=== PATIENT | female | born 1960 | race Caucasian/White ===

== ENCOUNTER 2022-05-23 06:50 | Emergency (ER) | payer MEDICAID, OTHER ==
[~2022-05-23] VITALS: Ht 165.1 cm; Wt 61.2 kg
[2022-05-23 08:36] LABS: Basophils # (auto) 0 10 ^3/uL (0-0.2); Basophils % (auto) 0.3 % (0.0-2.0); Eosinophils # (auto) 0 10 ^3/uL (0-0.8); Eosinophils % (auto) 0.6 % (0.0-7.0); Hematocrit 37.5 % (36.0-46.0); Hemoglobin 12.7 g/dL (12.2-16.2); Lymphocytes # (auto) 1.1 10 ^3/uL (0.4-5.4); Lymphocytes % (auto) 15.7 % (10.0-50.0); Mean Corpuscular Hemoglobin 34.4 pg (28.0-32.0); Mean Corpuscular Hgb Conc. 33.9 g/dL (32.0-36.0); Mean Corpuscular Volume 101.6 fL (80.0-100.0); Monocytes # (auto) 0.5 10 ^3/uL (0-1.3); Monocytes % (auto) 6.7 % (0.0-12.0); Neutrophils # (auto) 5.2 10 ^3/uL (1.6-8.6); Neutrophils % (auto) 76.7 % (37.0-80.0); Nucleated Red Blood Cells % 0.1 %; Red Cell Distribution Width 14.1 % (11.8-14.3); White Blood Cell 6.8 10^3/uL (4.4-10.8)
[2022-05-23 08:45] LABS: Albumin 3.8 g/dL (3.4-5.0); Calcium 8.6 mg/dL (8.5-10.1); Potassium 3.2 mmol/L (3.5-5.1)
[2022-05-23 08:50] LABS: BUN/Creatinine Ratio 17.2; Bilirubin, Total 2.2 mg/dL (0.2-1.0); Total Protein 8.4 g/dL (6.4-8.2)
[2022-05-23 09:10] LABS: INR 1.33 (0.9-1.15); Partial Thromboplastin Time 26.6 sec (23.6-33.0)
[2022-05-23 11:09] LABS: Urine Bacteria MANY /hpf (None Seen); Urine Blood Negative /uL (Negative); Urine Mucus MODERATE (None Seen); Urine Specific Gravity 1.027 (1.001-1.035); Urine WBC 18 /hpf (0 - 5)
[2022-05-23] MEDS ORDERED: NITR-87 PO (12:10)
[2022-05-23 13:46] VITALS: BP 141/85
== END 2022-05-23 13:23 | disposition home or self-care (01) ==
LOC: ER 06:50
DX: N39.0 Urinary tract infection, site not specified (principal); K76.9 Liver disease, unspecified
CPT/HCPCS: 36415; 70450; 74176; 80053; 81001; 84484; 85025; 85610; 85730

== ENCOUNTER 2023-09-21 04:13 | Inpatient (IN) | payer MEDICAID ==
[~2023-09-21] VITALS: Ht 165.1 cm; Wt 69.0 kg
[2023-09-21] VITALS (9 sets, daily range): BP systolic 118–159; BP diastolic 52–83; PULSE 78–126; RESP 14–20; TEMP 97.5–99.4; O2SAT 99–100
[~2023-09-21 04:13] MED LIST: NITR-87 PO
[2023-09-21] MEDS ORDERED: PROMETHAZINE HCL 25 MG/ML 1ML IV ONE (05:45)
[2023-09-21] MEDS ORDERED: PANTOPRAZOLE 40 MG/10 ML VIAL INJ IV ONE (05:45)
[2023-09-21] MEDS ORDERED: PANTOPRAZOLE 40mg/50ML NS AE 50 ML IV ONE (05:45)
[2023-09-21] MEDS ORDERED: HYDROmorphone HCL 2 MG/ML VL/or syr IV ONE (05:45)
[2023-09-21] MEDS ORDERED: LACTATED RINGER'S 1,000 ML IV ONE ×2 (05:45→07:15)
[2023-09-21 06:38] LABS: Basophils # (auto) 0 10 ^3/uL (0-0.2); Basophils % (auto) 0.3 % (0.0-2.0); Eosinophils # (auto) 0 10 ^3/uL (0-0.8); Hematocrit 17.7 % (36.0-46.0); Lymphocytes # (auto) 0.8 10 ^3/uL (0.4-5.4); Lymphocytes % (auto) 7.5 % (10.0-50.0); Mean Corpuscular Hemoglobin 25.1 pg (28.0-32.0); Mean Corpuscular Hgb Conc. 30.8 g/dL (32.0-36.0); Mean Corpuscular Volume 81.5 fL (80.0-100.0); Monocytes # (auto) 0.8 10 ^3/uL (0-1.3); Monocytes % (auto) 7.7 % (0.0-12.0); Neutrophils % (auto) 84.5 % (37.0-80.0); Nucleated Red Blood Cells % 0.4 %; Red Blood Cells 2.17 10^6/uL (4.0-5.20); White Blood Cell 10.7 10^3/uL (4.4-10.8)
[2023-09-21 06:41] LABS: Red Cell Distribution Width 20.3 % (11.8-14.3)
[2023-09-21 06:42] LABS: Hemoglobin 5.5 g/dL (12.2-16.2)
[2023-09-21 06:48] LABS: INR 1.55 (0.9-1.15); Partial Thromboplastin Time < 20.0 SEC (24.5-34.5); Prothrombin Time 15.8 sec (9.3-11.8)
[2023-09-21 06:50] LABS: Alanine Aminotransferase 59 U/L (7-40); Albumin 3.8 g/dL (3.2-4.8); Alkaline Phosphatase 66 U/L (46-116); Anion Gap 19 (5-15); Aspartate Aminotransferase 85 U/L (13-40); BUN/Creatinine Ratio 36.6 (10.0-20.0); Blood Urea Nitrogen 26 mg/dL (9-23); Carbon Dioxide 19 mmol/L (20-30); Chloride 99 mmol/L (98-107); Glucose 110 mg/dL (74-106); Magnesium 1.2 mg/dL (1.6-2.6); Potassium 4.1 mmol/L (3.5-5.1); Sodium 137 mmol/L (136-145)
[2023-09-21 06:51] LABS: Total Protein 6.5 g/dL (5.7-8.2)
[2023-09-21] MEDS: NICOTINE 14 MG/24HR TOPICAL PATCH TD SCH (10:00)
[2023-09-21] MEDS ORDERED: MORPHINE SULFATE INJ 2 MG/ml SYRG IV PRN (10:00)
[2023-09-21] MEDS ORDERED: DOCUSATE SOD 100 MG CAP PO PRN (10:00)
[2023-09-21] MEDS ORDERED: ONDANSETRON HCL 4 MG/2 ML VIAL IV PRN (10:00)
[2023-09-21] MEDS ORDERED: PIPERACILLIN-TAZOB 3.375GM 100 ML IV ONE (11:00)
[2023-09-21] MEDS: SODIUM CHLORIDE 0.9% 1,000 ML IV SCH ×2 (11:07→21:35)
[2023-09-21] MEDS: MAGNESIUM SULFATE 1GM/100ML 100 ML IV SCH ×2 (11:39→12:07)
[2023-09-21] MEDS: chlordiazePOXIDE HCL 25 MG CAP PO SCH ×2 (11:52→20:19)
[2023-09-21] MEDS: OCTREOTIDE ACETATE 500 MCG in SODIUM CHL 0.9% 99 ML IV SCH ×2 (11:54→21:31)
[2023-09-21] MEDS: FOLIC ACID 1 MG, MULTIPLE VITAMIN 10 ML, MAGNESIUM SULF SDV 50% 8 MEQ, THIAMINE INJ 100... INJ SCH ×5 (13:12)
[2023-09-21 13:26] LABS: Hematocrit 19.2 % (36.0-46.0)
[2023-09-21 13:31] LABS: Hemoglobin 6.1 g/dL (12.2-16.2)
[2023-09-21] MEDS ORDERED: PIPERACILLIN-TAZOB 3.375GM 100 ML IV SCH (15:00)
[2023-09-21 19:26] LABS: % Iron Saturation 7.1 % (15-50)
[2023-09-21 19:34] LABS: Hematocrit 20.4 % (36.0-46.0)
[2023-09-21 19:42] LABS: Ferritin 8.8 ng/mL (10-291); Folate (Folic Acid) 15.8 ng/mL (>5.38)
[2023-09-21 19:49] LABS: Hemoglobin 6.7 g/dL (12.2-16.2)
[2023-09-21] MEDS: HYDROmorphone HCL 2 MG/ML VL/or syr IV PRN (23:02)
[2023-09-21] MEDS: PROMETHAZINE HCL 25 MG/ML 1ML IV PRN (23:06)
[2023-09-22] VITALS (12 sets, daily range): BP systolic 121–154; BP diastolic 60–96; PULSE 81–106; RESP 16–20; TEMP 97.9–98.4; O2SAT 92–100
[2023-09-22] MEDS: chlordiazePOXIDE HCL 25 MG CAP PO SCH ×3 (02:00→21:09)
[2023-09-22] MEDS: OCTREOTIDE ACETATE 500 MCG in SODIUM CHL 0.9% 99 ML IV SCH ×3 (03:15→23:15)
[2023-09-22] MEDS: SODIUM CHLORIDE 0.9% 1,000 ML IV SCH ×2 (03:27→11:00)
[2023-09-22] MEDS: HYDROmorphone HCL 2 MG/ML VL/or syr IV PRN ×4 (05:26→21:10)
[2023-09-22] MEDS: PROMETHAZINE HCL 25 MG/ML 1ML IV PRN ×2 (05:29→16:07)
[2023-09-22] MEDS: PIPERACILLIN-TAZOB 3.375GM 100 ML IV SCH ×3 (05:29→21:10)
[2023-09-22 07:14] LABS: Basophils # (auto) 0 10 ^3/uL (0-0.2); Basophils % (auto) 0.4 % (0.0-2.0); Eosinophils # (auto) 0.1 10 ^3/uL (0-0.8); Lymphocytes # (auto) 0.6 10 ^3/uL (0.4-5.4); Mean Corpuscular Hemoglobin 27.8 pg (28.0-32.0); Monocytes # (auto) 0.4 10 ^3/uL (0-1.3); Neutrophils # (auto) 2.9 10 ^3/uL (1.6-8.6); Red Blood Cells 3.22 10^6/uL (4.0-5.20)
[2023-09-22 07:18] LABS: Eosinophils % (auto) 2.7 % (0.0-7.0); Hematocrit 27.2 % (36.0-46.0); Mean Corpuscular Hgb Conc. 32.9 g/dL (32.0-36.0); Mean Corpuscular Volume 84.5 fL (80.0-100.0); Monocytes % (auto) 10.8 % (0.0-12.0); Neutrophils % (auto) 71.1 % (37.0-80.0); Nucleated Red Blood Cells % 0.1 %
[2023-09-22 07:33] LABS: Alanine Aminotransferase 53 U/L (7-40); Albumin 3.1 g/dL (3.2-4.8); Alkaline Phosphatase 49 U/L (46-116); Anion Gap 4 (5-15); BUN/Creatinine Ratio 20.6 (10.0-20.0); Blood Urea Nitrogen 13 mg/dL (9-23); Calcium 7.7 mg/dL (8.5-10.1); Carbon Dioxide 26 mmol/L (20-30); Chloride 106 mmol/L (98-107); Glucose 95 mg/dL (74-106); Potassium 3.6 mmol/L (3.5-5.1); Sodium 136 mmol/L (136-145)
[2023-09-22 07:34] LABS: Aspartate Aminotransferase 91 U/L (13-40); Bilirubin, Total 2.5 mg/dL (0.2-1.0); Total Protein 5.3 g/dL (5.7-8.2)
[2023-09-22 09:05] LABS: Platelet Estimate Decreased
[2023-09-22] MEDS: NICOTINE 14 MG/24HR TOPICAL PATCH TD SCH (09:26)
[2023-09-22 10:23] LABS: Amphetamine Screen, Urine Neg (NEGATIVE)
[2023-09-22 10:24] LABS: Barbiturate Scree,Urine Neg (NEGATIVE); Benzodiazephine Screen, Urine Pos (NEGATIVE); Cannabinoid Screen, Urine Neg (NEGATIVE); Cocaine Screen, Urine Neg (NEGATIVE); Opiate Scree,Urine Neg (NEGATIVE); Phencyclidine Screen, Urine Neg (NEGATIVE)
[2023-09-22 11:33] LABS: Urine Bacteria NONE SEEN /hpf (None Seen); Urine Blood Negative /uL (Negative); Urine Clarity Clear (Clear); Urine Color Yellow (Yellow); Urine Protein, UAD Negative (Negative); Urine Specific Gravity 1.021 (1.001-1.035); Urine Urobilinogen Normal (Negative); Urine WBC 1 /hpf (0 - 5)
[2023-09-22 12:15] LABS: Hemoglobin 9.3 g/dL (12.2-16.2)
[2023-09-22 13:43] LABS: INR 1.44 (0.9-1.15); Partial Thromboplastin Time 22.9 SEC (24.5-34.5); Prothrombin Time 14.8 sec (9.3-11.8)
[2023-09-22] MEDS ORDERED: fentaNYL CITRATE 100 MCG/2 ML VL ONE (13:49)
[2023-09-22] MEDS ORDERED: MIDAZOLAM HCL 2MG/2ML 2ml VIAL (1mg/ml) ONE (13:49)
[2023-09-22] MEDS ORDERED: ONDANSETRON HCL 4 MG/2 ML VIAL ONE (13:49)
[2023-09-22] MEDS ORDERED: SODIUM CHLORIDE LOCK 10 ML ONE (13:49)
[2023-09-22 14:47] LABS: Basophils # (auto) 0 10 ^3/uL (0-0.2); Basophils % (auto) 0.3 % (0.0-2.0); Eosinophils # (auto) 0.1 10 ^3/uL (0-0.8); Eosinophils % (auto) 3.1 % (0.0-7.0); Hematocrit 28.8 % (36.0-46.0); Hemoglobin 9.4 g/dL (12.2-16.2); Lymphocytes # (auto) 0.8 10 ^3/uL (0.4-5.4); Lymphocytes % (auto) 18.1 % (10.0-50.0); Mean Corpuscular Hemoglobin 27.6 pg (28.0-32.0); Mean Corpuscular Hgb Conc. 32.8 g/dL (32.0-36.0); Mean Corpuscular Volume 84.4 fL (80.0-100.0); Monocytes # (auto) 0.5 10 ^3/uL (0-1.3); Monocytes % (auto) 12.6 % (0.0-12.0); Neutrophils # (auto) 2.8 10 ^3/uL (1.6-8.6); Neutrophils % (auto) 65.9 % (37.0-80.0); Nucleated Red Blood Cells % 0.3 %; Red Blood Cells 3.41 10^6/uL (4.0-5.20); Red Cell Distribution Width 16.3 % (11.8-14.3); White Blood Cell 4.2 10^3/uL (4.4-10.8)
[2023-09-22] MEDS: FOLIC ACID 1 MG, MULTIPLE VITAMIN 10 ML, MAGNESIUM SULF SDV 50% 8 MEQ, THIAMINE INJ 100... INJ SCH ×5 (16:15)
[2023-09-22 18:46] LABS: Hematocrit 28.5 % (36.0-46.0); Hemoglobin 9.3 g/dL (12.2-16.2)
[2023-09-23] MEDS: SODIUM CHLORIDE 0.9% 1,000 ML IV SCH ×4 (00:03→20:20)
[2023-09-23] MEDS: HYDROmorphone HCL 2 MG/ML VL/or syr IV PRN ×4 (02:59→19:46)
[2023-09-23] MEDS: PROMETHAZINE HCL 25 MG/ML 1ML IV PRN ×3 (02:59→19:38)
[2023-09-23] MEDS: PIPERACILLIN-TAZOB 3.375GM 100 ML IV SCH ×3 (06:07→21:29)
[2023-09-23 06:37] LABS: Basophils # (auto) 0 10 ^3/uL (0-0.2); Basophils % (auto) 0.4 % (0.0-2.0); Chloride 107 mmol/L (98-107); Eosinophils # (auto) 0.2 10 ^3/uL (0-0.8); Eosinophils % (auto) 4.7 % (0.0-7.0); Hematocrit 29.7 % (36.0-46.0); Hemoglobin 9.6 g/dL (12.2-16.2); Lymphocytes # (auto) 0.7 10 ^3/uL (0.4-5.4); Lymphocytes % (auto) 18.8 % (10.0-50.0); Mean Corpuscular Hemoglobin 27.6 pg (28.0-32.0); Mean Corpuscular Hgb Conc. 32.3 g/dL (32.0-36.0); Mean Corpuscular Volume 85.5 fL (80.0-100.0); Monocytes # (auto) 0.5 10 ^3/uL (0-1.3); Monocytes % (auto) 13.5 % (0.0-12.0); Neutrophils # (auto) 2.3 10 ^3/uL (1.6-8.6); Neutrophils % (auto) 62.6 % (37.0-80.0); Nucleated Red Blood Cells % 0.1 %; Potassium 3.5 mmol/L (3.5-5.1); Red Blood Cells 3.47 10^6/uL (4.0-5.20); Red Cell Distribution Width 16.5 % (11.8-14.3); Sodium 139 mmol/L (136-145); White Blood Cell 3.8 10^3/uL (4.4-10.8)
[2023-09-23 06:38] LABS: Anion Gap 6 (5-15); Carbon Dioxide 26 mmol/L (20-30)
[2023-09-23 06:39] LABS: Calcium 7.7 mg/dL (8.5-10.1)
[2023-09-23 06:43] LABS: Blood Urea Nitrogen 7 mg/dL (9-23); Glucose 87 mg/dL (74-106)
[2023-09-23 08:00] VITALS: BP 135/77; PULSE 78; RESP 16; TEMP 98.5; O2SAT 100
[2023-09-23] MEDS: OCTREOTIDE ACETATE 500 MCG in SODIUM CHL 0.9% 99 ML IV SCH ×2 (08:04→19:15)
[2023-09-23 08:10] VITALS: BP 135/77; PULSE 76; PULSE 78; RESP 16; TEMP 98.5
[2023-09-23] MEDS: chlordiazePOXIDE HCL 25 MG CAP PO SCH ×2 (09:22→21:30)
[2023-09-23] MEDS: NICOTINE 14 MG/24HR TOPICAL PATCH TD SCH (09:22)
[2023-09-23 12:00] VITALS: BP 129/92; PULSE 84; RESP 16; TEMP 98.3; O2SAT 96
[2023-09-23] MEDS: FOLIC ACID 1 MG, MULTIPLE VITAMIN 10 ML, MAGNESIUM SULF SDV 50% 8 MEQ, THIAMINE INJ 100... INJ SCH ×5 (12:44)
[2023-09-23 16:00] VITALS: BP 122/73; PULSE 80; RESP 16; TEMP 98.1; O2SAT 94
[2023-09-23 20:00] VITALS: PULSE 83
[2023-09-23 22:00] VITALS: BP 128/102; PULSE 101; RESP 17; TEMP 98.4; O2SAT 96
[2023-09-24] VITALS (7 sets, daily range): BP systolic 115–148; BP diastolic 66–88; PULSE 68–120; RESP 16–18; TEMP 97.9–98.8; O2SAT 93–98
[2023-09-24] MEDS: SODIUM CHLORIDE 0.9% 1,000 ML IV SCH ×3 (04:44→21:59)
[2023-09-24] MEDS: OCTREOTIDE ACETATE 500 MCG in SODIUM CHL 0.9% 99 ML IV SCH ×2 (04:46→15:35)
[2023-09-24] MEDS: HYDROmorphone HCL 2 MG/ML VL/or syr IV PRN ×3 (05:09→22:35)
[2023-09-24] MEDS: PIPERACILLIN-TAZOB 3.375GM 100 ML IV SCH ×3 (05:10→21:59)
[2023-09-24 06:56] LABS: Basophils # (auto) 0 10 ^3/uL (0-0.2); Basophils % (auto) 0.3 % (0.0-2.0); Eosinophils # (auto) 0.2 10 ^3/uL (0-0.8); Eosinophils % (auto) 4.2 % (0.0-7.0); Hematocrit 29.9 % (36.0-46.0); Hemoglobin 9.5 g/dL (12.2-16.2); Lymphocytes # (auto) 0.5 10 ^3/uL (0.4-5.4); Lymphocytes % (auto) 13.7 % (10.0-50.0); Mean Corpuscular Hemoglobin 27.6 pg (28.0-32.0); Mean Corpuscular Hgb Conc. 31.9 g/dL (32.0-36.0); Mean Corpuscular Volume 86.6 fL (80.0-100.0); Monocytes # (auto) 0.5 10 ^3/uL (0-1.3); Monocytes % (auto) 12.3 % (0.0-12.0); Neutrophils # (auto) 2.7 10 ^3/uL (1.6-8.6); Neutrophils % (auto) 69.5 % (37.0-80.0); Nucleated Red Blood Cells % 0.3 %; Red Blood Cells 3.46 10^6/uL (4.0-5.20); Red Cell Distribution Width 16.5 % (11.8-14.3); White Blood Cell 3.9 10^3/uL (4.4-10.8)
[2023-09-24] MEDS ORDERED: chlordiazePOXIDE HCL 25 MG CAP PO SCH (07:00)
[2023-09-24 07:07] LABS: INR 1.36 (0.9-1.15); Partial Thromboplastin Time 25.1 SEC (24.5-34.5)
[2023-09-24 07:51] LABS: Alanine Aminotransferase 51 U/L (7-40); Albumin 3.3 g/dL (3.2-4.8); Alkaline Phosphatase 59 U/L (46-116); Anion Gap 6 (5-15); Aspartate Aminotransferase 60 U/L (13-40); BUN/Creatinine Ratio 9.3 (10.0-20.0); Bilirubin, Total 2.3 mg/dL (0.2-1.0); Blood Urea Nitrogen < 5 mg/dL (9-23); Calcium 7.8 mg/dL (8.7-10.4); Carbon Dioxide 24 mmol/L (20-30); Chloride 108 mmol/L (98-107); Glucose 110 mg/dL (74-106); Potassium 3.9 mmol/L (3.5-5.1); Sodium 138 mmol/L (136-145); Total Protein 5.8 g/dL (5.7-8.2)
[2023-09-24] MEDS: NICOTINE 14 MG/24HR TOPICAL PATCH TD SCH (10:00)
[2023-09-24] MEDS: PROMETHAZINE HCL 25 MG/ML 1ML IV PRN (12:20)
[2023-09-24] MEDS: FOLIC ACID 1 MG, MULTIPLE VITAMIN 10 ML, MAGNESIUM SULF SDV 50% 8 MEQ, THIAMINE INJ 100... INJ SCH ×5 (13:41)
[2023-09-25] MEDS: OCTREOTIDE ACETATE 500 MCG in SODIUM CHL 0.9% 99 ML IV SCH ×2 (03:07→13:05)
[2023-09-25 05:00] VITALS: BP 133/82; PULSE 75; RESP 17; TEMP 98; O2SAT 95
[2023-09-25] MEDS: PIPERACILLIN-TAZOB 3.375GM 100 ML IV SCH ×2 (05:33→14:00)
[2023-09-25 07:08] LABS: Alanine Aminotransferase 55 U/L (7-40); Alkaline Phosphatase 71 U/L (46-116); Anion Gap 4 (5-15); Aspartate Aminotransferase 69 U/L (13-40); Calcium 7.9 mg/dL (8.7-10.4); Carbon Dioxide 26 mmol/L (20-30); Chloride 109 mmol/L (98-107); Glucose 100 mg/dL (74-106); Magnesium 1.7 mg/dL (1.6-2.6); Potassium 3.8 mmol/L (3.5-5.1); Sodium 139 mmol/L (136-145)
[2023-09-25 07:09] LABS: Bilirubin, Total 2.3 mg/dL (0.2-1.0); Total Protein 5.4 g/dL (5.7-8.2)
[2023-09-25 07:12] LABS: BUN/Creatinine Ratio 9.4 (10.0-20.0); Blood Urea Nitrogen < 5 mg/dL (9-23)
[2023-09-25 07:14] LABS: Basophils # (auto) 0 10 ^3/uL (0-0.2); Basophils % (auto) 0.4 % (0.0-2.0); Eosinophils # (auto) 0.2 10 ^3/uL (0-0.8); Eosinophils % (auto) 4.6 % (0.0-7.0); Hematocrit 26.9 % (36.0-46.0); Hemoglobin 8.6 g/dL (12.2-16.2); Lymphocytes # (auto) 0.6 10 ^3/uL (0.4-5.4); Lymphocytes % (auto) 19.2 % (10.0-50.0); Mean Corpuscular Hemoglobin 27.6 pg (28.0-32.0); Mean Corpuscular Hgb Conc. 32.1 g/dL (32.0-36.0); Monocytes # (auto) 0.5 10 ^3/uL (0-1.3); Monocytes % (auto) 15.4 % (0.0-12.0); Neutrophils % (auto) 60.4 % (37.0-80.0); Nucleated Red Blood Cells % 0.3 %; Red Blood Cells 3.13 10^6/uL (4.0-5.20); Red Cell Distribution Width 16.6 % (11.8-14.3); White Blood Cell 3.4 10^3/uL (4.4-10.8)
[2023-09-25 08:00] VITALS: BP 133/82; PULSE 75; RESP 18; TEMP 97.9; O2SAT 95
[2023-09-25 08:59] VITALS: BP 137/76; PULSE 75; RESP 16; TEMP 98; O2SAT 100
[2023-09-25] MEDS: NICOTINE 14 MG/24HR TOPICAL PATCH TD SCH (10:00)
[2023-09-25] MEDS: SODIUM CHLORIDE 0.9% 1,000 ML IV SCH ×2 (10:00→14:00)
[2023-09-25] MEDS: HYDROmorphone HCL 2 MG/ML VL/or syr IV PRN (10:35)
[2023-09-25 12:14] VITALS: BP 127/81; PULSE 78; RESP 18; TEMP 98.6; O2SAT 96
[2023-09-25] MEDS ORDERED: THIA100T13 PO (12:42)
[2023-09-25] MEDS ORDERED: MULTTAB99 PO (12:42)
[2023-09-25] MEDS ORDERED: PANT40TA2 PO (12:42)
[2023-09-25] MEDS ORDERED: FOLI-119 PO (12:42)
[2023-09-25] MEDS: FOLIC ACID 1 MG, MULTIPLE VITAMIN 10 ML, MAGNESIUM SULF SDV 50% 8 MEQ, THIAMINE INJ 100... INJ SCH ×5 (13:14)
[2023-09-25 14:14] VITALS: BP 133/82; PULSE 75; RESP 18; TEMP 37; O2SAT 95
== END 2023-09-25 16:00 | disposition home or self-care (01) | DRG 280 ==
LOC: EDBD 04:13 → ER 04:13 → TELE 09:59 → TELE-CENTR 20:32
PROVIDERS: ADMIT Internal Medicine Geriatric Medicine; ATTEND Student in an Organized Health Care Education/Training Program
PROC: 30233N1 Transfusion of Nonautologous Red Blood Cells into Peripheral Vein, Percutaneous Approach (ICD-10-PCS; 2023-09-21)
PROC: 06L38CZ Occlusion of Esophageal Vein with Extraluminal Device, Via Natural or Artificial Opening Endoscopic (ICD-10-PCS; principal; 2023-09-22 13:51)
DX: K70.30 Alcoholic cirrhosis of liver without ascites (principal); I85.11 Secondary esophageal varices with bleeding; D68.8 Other specified coagulation defects; D69.6 Thrombocytopenia, unspecified; F17.210 Nicotine dependence, cigarettes, uncomplicated; R74.8 Abnormal levels of other serum enzymes; K86.1 Other chronic pancreatitis; D64.9 Anemia, unspecified; E83.42 Hypomagnesemia; F10.10 Alcohol abuse, uncomplicated; Z88.6 Allergy status to analgesic agent; Z88.3 Allergy status to other anti-infective agents; Z83.3 Family history of diabetes mellitus; Z71.6 Tobacco abuse counseling
CPT/HCPCS: 36415; 36430; 36556; 71045; 74176; 76705; 78226; 80048; 80053; 80307; 80320; 81001; 82140; 82607; 82728; 82746; 83540; 83550; 83615; 83690; 83735; 83880; 84484; 85014; 85018; 85025; 85045; 85610; 85730; 86850; 86900; 86901; 86920; 93005; 96361; 96365; 96366; 96367; 96368; 96375; 99291; C9113; G0378; J2250; J2405; J2543